=== PATIENT | female | born 1960 | race Caucasian/White ===

== ENCOUNTER → 2019-06-04 | Outpatient (REF) | payer BC | LOC: M LAB REF 13:34 | PROVIDERS: ATTEND Physician Assistant Medical | DX: N39.0 Urinary tract infection, site not specified (principal) ==

== ENCOUNTER → 2019-06-07 | Outpatient (REF) | payer BC ==
[2019-06-07 19:32] LABS: BASO % 0.6 % (0.0-1.0); EOS # 0.1 10^3/uL (0.0-0.50); EOS % 1.8 % (0.0-3.0); HEMATOCRIT 40.9 % (36.0-47.0); HEMOGLOBIN 13.5 g/dl (12.0-15.5); LYMPH # 3.1 10^3/uL (1.5-4.5); LYMPH % 42.2 % (24.0-44.0); MEAN CORPUSCULAR HEMOGLOBIN 30.4 pg (27.0-33.0); MEAN CORPUSCULAR VOLUME 92.1 fl (80.0-96.0); MONO # 0.6 10^3/uL (0.0-0.8); MONO % 8.9 % (0.0-5.0); NEUTROPHILS # 3.4 10^3/uL (1.8-7.7); NEUTROPHILS % 46.4 % (36.0-66.0); PLATELET COUNT, AUTOMATED 256 10^3/uL (150-450); RED BLOOD COUNT 4.44 10^6/uL (4.00-5.40); WHITE BLOOD COUNT 7.2 10^3/uL (4.0-10.0)
[2019-06-07 19:51] LABS: ALT/SGPT 27 U/L (12-78); AMYLASE 48 U/L (25-115); BILIRUBIN,TOTAL 0.7 MG/DL (0.2-1.0); BLOOD UREA NITROGEN 15 MG/DL (7-18); CALCIUM LEVEL 9.1 MG/DL (8.5-10.1); CARBON DIOXIDE LEVEL 31 MEQ/L (21-32); CHLORIDE LEVEL 104 MEQ/L (98-107); GLOMERULAR FILTRATION RATE > 60.0 (>51); GLUCOSE, FASTING 89 MG/DL (70-100); LIPASE 217 U/L (73-393); POTASSIUM SERUM 4.4 MEQ/L (3.5-5.1); SODIUM LEVEL 142 MEQ/L (136-145); TOTAL PROTEIN 6.9 GM/DL (6.4-8.2)
== END ==
LOC: M LABDRWAD 19:14
PROVIDERS: ATTEND Physician Assistant Medical
DX: R10.9 Unspecified abdominal pain (principal)

== ENCOUNTER → 2020-08-10 | Outpatient (REF) | payer BC | LOC: M LAB REF 16:31 | PROVIDERS: ATTEND Nurse Practitioner Adult Health | DX: M25.50 Pain in unspecified joint (principal) ==

== ENCOUNTER → 2021-05-16 | Outpatient (REF) | payer BC | LOC: M LAB REF 16:47 | PROVIDERS: ATTEND Nurse Practitioner Adult Health | DX: R30.0 Dysuria (principal) ==

== ENCOUNTER → 2021-11-19 | Outpatient (REF) | payer BC | LOC: M LAB REF 16:41 | PROVIDERS: ATTEND Nurse Practitioner Adult Health | DX: R30.0 Dysuria (principal) ==

== ENCOUNTER → 2022-05-02 | Outpatient (REF) | payer BC ==
[2022-05-05 14:08] LABS: EBV AB TO NUCLEAR ANTIGEN <18.0 U/mL (0.0-17.9); EBV VIRAL CAPSID AG IgG >600.0 U/mL (0.0-17.9); EBV VIRAL CAPSID AG IgM <36.0 U/mL (0.0-35.9)
== END ==
LOC: M LAB REF 16:20
PROVIDERS: ATTEND Nurse Practitioner Adult Health
DX: R53.83 Other fatigue (principal); R30.0 Dysuria

== ENCOUNTER → 2022-10-22 | Outpatient (REF) | payer BC | LOC: M SFHCDERM 15:52 | PROVIDERS: ATTEND Nurse Practitioner Family | DX: D49.2 Neoplasm of unspecified behavior of bone, soft tissue, and skin (principal) ==

== ENCOUNTER → 2023-02-26 | Outpatient (REF) | payer BC ==
[2023-02-26 17:45] LABS: C REACTIVE PROTEIN QUANTITATIV < 0.40 MG/DL (<1.0)
[2023-02-26 17:47] LABS: RHEUMATOID FACTOR QUANT 4.1 IU/ML (<14)
[2023-02-28 21:09] LABS: ANTINUCLEAR ANTIBODIES DIRECT Negative (Negative); CYCLIC CITRULLINATED PEPTIDE 4 units (0-19)
== END ==
LOC: M LAB REF 16:14
PROVIDERS: ATTEND Nurse Practitioner Adult Health
DX: M25.50 Pain in unspecified joint (principal)

== ENCOUNTER → 2023-04-09 | Outpatient (CLI) | payer BC | LOC: M RAD 13:07 | PROVIDERS: ATTEND Nurse Practitioner Family | DX: R10.30 Lower abdominal pain, unspecified (principal) ==

== ENCOUNTER → 2023-05-28 | Outpatient (REF) | payer BC | LOC: M LAB REF 12:07 | PROVIDERS: ATTEND Nurse Practitioner Adult Health | DX: R10.32 Left lower quadrant pain (principal) ==

== ENCOUNTER → 2023-06-01 | Outpatient (CLI) | payer BC ==
[~2023-06-01] MED LIST: READI-CAT 2 As Ordered ONE
== END ==
LOC: M RAD 09:05
PROVIDERS: ATTEND Surgery
DX: R10.32 Left lower quadrant pain (principal); K59.00 Constipation, unspecified

== ENCOUNTER → 2023-10-13 | Outpatient (REF) | payer BC ==
[~2023-10-13] MED LIST changes: +D3 S20002 PO; +ESTR62CR TOP; -READI-CAT 2 As Ordered ONE; +VITATAB73 PO
== END ==
LOC: M SFHCDERM 13:49
PROVIDERS: ATTEND Physician Assistant
DX: L82.0 Inflamed seborrheic keratosis (principal)

== ENCOUNTER → 2023-11-18 | Outpatient (REF) | payer BC | LOC: M LAB REF 17:53 | PROVIDERS: ATTEND Nurse Practitioner Family | DX: R10.9 Unspecified abdominal pain (principal) ==

== ENCOUNTER → 2023-11-19 | Outpatient (REF) | payer BC | LOC: M LAB REF 10:37 | PROVIDERS: ATTEND Nurse Practitioner Family | DX: R10.9 Unspecified abdominal pain (principal) ==

== ENCOUNTER → 2023-11-24 | Outpatient (CLI) | payer BC ==
[~2023-11-24] MED LIST changes: +READI-CAT 2 As Ordered ONE
== END ==
LOC: M RAD 14:31
PROVIDERS: ATTEND Nurse Practitioner Family
DX: K56.41 Fecal impaction (principal)

== ENCOUNTER → 2023-11-27 | Day surgery (SDC) | payer BC ==
[~2023-11-27] VITALS: Ht 160 cm; Wt 63.9 kg
[~2023-11-27] MED LIST changes: -READI-CAT 2 As Ordered ONE
[2023-11-27] MEDS: NS 1,000 ML IV ONE (06:00)
[2023-11-27 12:26] VITALS: TEMP 97.2
[2023-11-27 12:45] VITALS: BP 130/67; O2SAT 99
== END | disposition home or self-care (01) ==
LOC: M OPP 09:20
PROVIDERS: ATTEND Internal Medicine Gastroenterology
DX: Z12.11 Encounter for screening for malignant neoplasm of colon (principal); K64.4 Residual hemorrhoidal skin tags; K64.8 Other hemorrhoids; K29.70 Gastritis, unspecified, without bleeding; K31.89 Other diseases of stomach and duodenum; R10.13 Epigastric pain; Z88.0 Allergy status to penicillin; Z88.3 Allergy status to other anti-infective agents

== ENCOUNTER → 2023-12-23 | Outpatient (REF) | payer BC ==
[2023-12-23 15:53] LABS: RSV AMPLIFICATION NEGATIVE (NEGATIVE)
[2023-12-23 16:18] LABS: C REACTIVE PROTEIN QUANTITATIV < 0.40 MG/DL (<1.0)
[2023-12-23 16:40] LABS: URIC ACID 3.7 MG/DL (3.1-7.8)
[2023-12-25 23:07] LABS: ANA (HEP2) Negative (.); CYCLIC CITRULLINATED PEPTIDE 1 units (0-19)
== END ==
LOC: M LAB REF 14:54
PROVIDERS: ATTEND Nurse Practitioner Family
DX: R53.83 Other fatigue (principal); N39.0 Urinary tract infection, site not specified; M25.50 Pain in unspecified joint

== ENCOUNTER → 2024-03-24 | Outpatient (REF) | payer BC ==
[2024-03-24 19:21] LABS: PERCENT SATURATION 18.2 % (13.2-45.0)
[2024-03-24 19:23] LABS: FERRITIN 35.4 NG/ML (7.3-270.7)
== END ==
LOC: M LAB REF 16:28
PROVIDERS: ATTEND Nurse Practitioner Family
DX: R53.83 Other fatigue (principal)

== ENCOUNTER → 2024-03-25 | Outpatient (REF) | payer BC | LOC: M LAB REF 16:37 | PROVIDERS: ATTEND Nurse Practitioner Family | DX: R53.83 Other fatigue (principal); M25.50 Pain in unspecified joint ==

== ENCOUNTER → 2024-07-14 | Outpatient (REF) | payer BC ==
[2024-07-14 14:45] LABS: URIC ACID 4.1 MG/DL (3.1-7.8)
[2024-07-14 14:47] LABS: C REACTIVE PROTEIN QUANTITATIV < 0.40 MG/DL (<1.0)
[2024-07-14 14:53] LABS: RHEUMATOID FACTOR QUANT 7.5 IU/ML (<14)
[2024-07-16 00:32] LABS: CYCLIC CITRULLINATED PEPTIDE < 16 UNITS (<20)
[2024-07-18 08:23] LABS: ANA PATTERN Cytoplasmic (NEGATIVE); ANA SCREEN, IFA POSITIVE (NEGATIVE); ANA TITER 1:40 titer (<1:40)
[2024-07-20 15:47] LABS: HLA-B27 Negative (Negative)
== END ==
LOC: M LAB REF 12:51
PROVIDERS: ATTEND Nurse Practitioner Family
DX: R53.83 Other fatigue (principal); M25.50 Pain in unspecified joint

== ENCOUNTER → 2024-10-17 | Outpatient (REF) | payer OTHER ==
[2024-10-17 17:39] LABS: RSV AMPLIFICATION NEGATIVE (NEGATIVE)
== END ==
LOC: M LAB REF 16:08
PROVIDERS: ATTEND Nurse Practitioner Family
DX: R05.9 Cough, unspecified (principal)

== ENCOUNTER → 2025-07-25 | Outpatient (CLI) | payer OTHER | LOC: M RAD 12:19 | PROVIDERS: ATTEND Nurse Practitioner Family | DX: M25.50 Pain in unspecified joint (principal); M79.642 Pain in left hand ==

== ENCOUNTER → 2025-07-26 | Outpatient (REF) | payer OTHER ==
[2025-07-26 15:35] LABS: C REACTIVE PROTEIN QUANTITATIV 1.14 MG/DL (<1.0); RHEUMATOID FACTOR QUANT < 3.5 IU/ML (<14)
== END ==
LOC: M LAB REF 14:20
PROVIDERS: ATTEND Nurse Practitioner Family
DX: M25.50 Pain in unspecified joint (principal); R53.83 Other fatigue